=== PATIENT | female | born 1955 | race African-American/Black ===

== ENCOUNTER 2017-07-31 14:13 | Emergency (ER) | payer MEDICAID ==
[2017-07-31] MEDS ORDERED: KETOROLAC 15 MG INJ IM (16:17)
[2017-07-31 16:33] LABS: URINE BLOOD (Dip) POC Negative (NEGATIVE); URINE GLUCOSE (Dip) POC Negative (NEGATIVE); URINE KETONES (Dip) POC Trace (NEGATIVE); URINE LEUKOCYTE EST (Dip) POC Trace (NEGATIVE); URINE NITRITE (Dip) POC Negative (NEGATIVE); URINE TOTAL PROTEIN POC Trace (NEGATIVE)
[2017-07-31] MEDS: HYDROCODONE/APAP (5/325) TAB PO (16:39)
== END 2017-07-31 18:13 | disposition home or self-care (01) ==
LOC: FTE 14:13
DX: S09.90XA Unspecified injury of head, initial encounter (principal); E11.9 Type 2 diabetes mellitus without complications; J45.909 Unspecified asthma, uncomplicated; W01.0XXA Fall on same level from slipping, tripping and stumbling without subsequent striking against object, initial encounter; Y92.89 Other specified places as the place of occurrence of the external cause
CPT/HCPCS: 72100; 81003; 99283-25

== ENCOUNTER 2017-12-11 21:28 | Observation (INO) | payer OTHER ==
[2017-12-11] MEDS ORDERED: ACETAMINOPHEN 325 MG TAB PO (23:30)
[2017-12-11] MEDS ORDERED: ONDANSETRON 4 MG INJ IV (23:30)
[2017-12-11] MEDS ORDERED: BISACODYL (EC) 5 MG TAB PO (23:30)
[2017-12-11] MEDS ORDERED: NACL 0.9% 3 ML SYG IV (23:30)
[2017-12-11] MEDS ORDERED: DOCUSATE SODIUM 100 MG CAP PO (23:30)
[2017-12-11 23:44] LABS: ADD MAN DIFF? NO
[2017-12-11 23:45] LABS: WHITE BLOOD COUNT 8.3 10^3/ul (4.8-10.8)
[2017-12-11 23:45] LABS: BASOPHILS % 0.2 % (0.0-2.0); EOSINOPHILS # 0.1 10^3/ul (0.0-0.5); EOSINOPHILS % 1.4 % (0.0-7.0); HEMATOCRIT 38.7 % (37.0-47.0); HEMOGLOBIN 12.3 g/dl (12.0-16.0); LYMPHOCYTES % 48.2 % (15.0-51.0); MEAN CORPUSCULAR HGB CONC 31.8 g/dl (32.0-37.0); MEAN CORPUSCULAR VOLUME 85.1 fl (82.0-101.0); MEAN PLATELET VOLUME 9.6 fl (7.4-10.4); MONOCYTE # 0.4 10^3/ul (0.3-0.9); MONOCYTES % 5.3 % (0.0-11.0); NEUTROPHIL # 3.7 10^3/ul (1.6-7.5); NEUTROPHILS % 44.7 % (39.0-77.0); PLATELET COUNT 261 10^3/UL (140-415); RED BLOOD COUNT 4.55 10^6/ul (4.20-5.40); RED CELL DISTRIBUTION WIDTH 14.5 % (11.5-14.5)
[2017-12-12] MEDS: SOD CHLORIDE 0.9% 500 ML IV (00:09)
[2017-12-12 00:13] LABS: ALANINE AMINOTRANSFERASE 26 IU/L (13-69); ALBUMIN 3.5 g/dl (3.3-4.9); ALBUMIN/GLOBULIN RATIO 1.29; ALKALINE PHOSPHATASE 131 IU/L (42-121); ANION GAP 7 (8-16); ASPARTATE AMINO TRANSFERASE 27 IU/L (15-46); BILIRUBIN,INDIRECT 0.2 mg/dl (0-1.1); BILIRUBIN,TOTAL 0.2 mg/dl (0.2-1.3); BLOOD UREA NITROGEN 10 mg/dl (7-20); CALCIUM 8.9 mg/dl (8.4-10.2); CARBON DIOXIDE 26 mmol/L (21-31); CHLORIDE 109 mmol/L (97-110); CREATININE 0.84 mg/dl (0.44-1.00); GLUCOSE 115 mg/dl (70-220); POTASSIUM 3.1 mmol/L (3.5-5.1); SODIUM 139 mmol/L (135-144); TOTAL PROTEIN 6.2 g/dl (6.1-8.1)
[2017-12-12] MEDS ORDERED: traMADol 50 MG TAB PO (00:30)
[2017-12-12 01:28] LABS: ETHANOL < 10.0 mg/dl
[2017-12-12] MEDS: KETOROLAC 15 MG INJ IV ×4 (01:32→20:47)
[2017-12-12] MEDS: POTASSIUM CHLORIDE (SR) 20 MEQ TAB PO ×3 (03:29→21:00)
[2017-12-12] MEDS: SOD CHLORIDE 0.9% 1,000 ML IV (04:49)
[2017-12-12 06:48] LABS: ADD MAN DIFF? NO
[2017-12-12 06:52] LABS: WHITE BLOOD COUNT 6.8 10^3/ul (4.8-10.8)
[2017-12-12 06:52] LABS: BASOPHILS % 0.3 % (0.0-2.0); EOSINOPHILS # 0.1 10^3/ul (0.0-0.5); EOSINOPHILS % 2.1 % (0.0-7.0); HEMATOCRIT 38.9 % (37.0-47.0); HEMOGLOBIN 12.3 g/dl (12.0-16.0); LYMPHOCYTES # 3.8 10^3/ul (0.8-2.9); LYMPHOCYTES % 56.2 % (15.0-51.0); MEAN CORPUSCULAR HEMOGLOBIN 27.3 pg (29.0-33.0); MEAN CORPUSCULAR HGB CONC 31.6 g/dl (32.0-37.0); MEAN CORPUSCULAR VOLUME 86.4 fl (82.0-101.0); MEAN PLATELET VOLUME 9.9 fl (7.4-10.4); MONOCYTE # 0.4 10^3/ul (0.3-0.9); MONOCYTES % 5.3 % (0.0-11.0); NEUTROPHIL # 2.5 10^3/ul (1.6-7.5); NEUTROPHILS % 36.1 % (39.0-77.0); PLATELET COUNT 249 10^3/UL (140-415); RED CELL DISTRIBUTION WIDTH 14.3 % (11.5-14.5)
[2017-12-12 07:13] LABS: CREATINE KINASE 148 IU/L (23-200)
[2017-12-12 07:15] LABS: ALANINE AMINOTRANSFERASE 25 IU/L (13-69); ALBUMIN 3.2 g/dl (3.3-4.9); ALBUMIN/GLOBULIN RATIO 1.33; ALKALINE PHOSPHATASE 114 IU/L (42-121); ANION GAP 7 (8-16); ASPARTATE AMINO TRANSFERASE 23 IU/L (15-46); BILIRUBIN,INDIRECT 0.2 mg/dl (0-1.1); BILIRUBIN,TOTAL 0.2 mg/dl (0.2-1.3); BLOOD UREA NITROGEN 8 mg/dl (7-20); CARBON DIOXIDE 26 mmol/L (21-31); CHLORIDE 111 mmol/L (97-110); CHOLESTEROL 135 mg/dl (100-200); GLUCOSE 148 mg/dl (70-220); HDL CHOLESTEROL 67 mg/dl (35-98); LDL CHOLESTEROL,CALCULATED 50 mg/dl; MAGNESIUM 1.9 mg/dl (1.7-2.5); POTASSIUM 3.5 mmol/L (3.5-5.1); SODIUM 140 mmol/L (135-144); TOTAL PROTEIN 5.6 g/dl (6.1-8.1); TRIGLYCERIDES 91 mg/dl (0-149)
[2017-12-12] MEDS: QUETIAPINE 100 MG TAB PO ×4 (09:00→20:52)
[2017-12-12] MEDS ORDERED: QUETIAPINE 100 MG TAB PO (09:30)
[2017-12-12 12:09] LABS: AMPHETAMINE/METHAMPHETAMINE Negative (NEGATIVE); BARBITURATES Negative (NEGATIVE); CANNABINOIDS Negative (NEGATIVE); OPIATES Negative (NEGATIVE)
[2017-12-12 12:15] LABS: BENZODIAZEPINES Positive (NEGATIVE); COCAINE Positive (NEGATIVE)
[2017-12-12] MEDS: INSULIN ASPART [NOVOLOG] 3 ML PEN SC ×2 (17:53→21:00)
[2017-12-12] MEDS ORDERED: GLUCOSE GEL 15 GRAM TUBE BUCCAL (18:00)
[2017-12-12] MEDS ORDERED: DEXTROSE 50% 50 ML SYRINGE IV ×2 (18:00)
[2017-12-12] MEDS ORDERED: GLUCAGON 1 MG INJ IM (18:00)
[2017-12-12] MEDS ORDERED: GLUCOSE GEL 15 GRAM TUBE PO ×2 (18:00)
[2017-12-12] MEDS: INSULIN GLARGINE [LANTus] (100 UNITS/ML) SYG SC (20:58)
[2017-12-12] MEDS ORDERED: CAPSAICIN 0.025% 60 GM CR TOP (21:30)
[2017-12-13] MEDS: ACCU-CHEK XX (01:52)
[2017-12-13] MEDS: KETOROLAC 15 MG INJ IV (06:59)
[2017-12-13] MEDS: INSULIN ASPART [NOVOLOG] 3 ML PEN SC ×2 (08:00→12:00)
[2017-12-13] MEDS: QUETIAPINE 100 MG TAB PO (08:49)
== END 2017-12-13 13:05 | disposition home or self-care (01) ==
LOC: PP2 21:28
PROVIDERS: Internal Medicine
DX: M79.652 Pain in left thigh (principal); E11.9 Type 2 diabetes mellitus without complications; F25.0 Schizoaffective disorder, bipolar type; M62.82 Rhabdomyolysis; Z59.0 Homelessness
CPT/HCPCS: 73700; 80053; 80061; 80307; 82550; 82962; 83036; 83735; 84443; 85025; 93970; 97161; 97165; 99217; G0378